=== PATIENT | female | born 1960 | race Caucasian/White ===

== ENCOUNTER 2025-01-18 09:11 | Emergency (ER) | payer OTHER ==
[~2025-01-18] VITALS: Ht 162.6 cm; Wt 90.0 kg
[2025-01-18 09:16] VITALS: TEMP 36.9; O2SAT 98
[2025-01-18 11:26] LABS: BASOPHILS % 0.8 % (0.0-2.0); EOSINOPHILS % 0.4 % (0.0-5.0); HEMATOCRIT. 37.7 % (36.0-48.0); LYMPHOCYTES % 14.7 % (20.0-50.0); MEAN CORPUSCULAR HEMOGLOBIN 27.2 pg (28.0-32.0); MEAN CORPUSCULAR HGB CONC 31.8 g/dL (31.0-37.0); MEAN CORPUSCULAR VOLUME 85.3 fL (81.0-99.0); MEAN PLATELET VOLUME 7.3 fl (7.4-10.4); MONOCYTES % 7.1 % (2.0-8.0); PLATELET 332 x1000/uL (130-400); RED BLOOD CELL COUNT 4.42 mill/uL (4.2-5.4); RED CELL DISTRIBUTION WIDTH 14.4 % (11.6-14.6); WHITE BLOOD COUNT 11.7 x1000/uL (4.5-11.0)
[2025-01-18 11:34] LABS: CHLORIDE 102 mEq/L (98-107); SODIUM 139 mEq/L (136-145)
[2025-01-18 11:35] LABS: CALCIUM 9.3 mg/dL (8.7-10.4); CARBON DIOXIDE 28 mEq/L (21-32)
[2025-01-18 11:40] LABS: CREATININE 1.1 mg/dL (0.6-1.0); GLUCOSE 118 mg/dL (70-105); UREA NITROGEN BLOOD 19 mg/dL (9-23)
[2025-01-18 11:41] LABS: PROTHROMBIN TIME 10.4 sec (9.6-11.0)
[2025-01-18 12:04] LABS: ETHANOL BLOOD < 10 mg/dL (<10)
[2025-01-18] MEDS: HYDROCODONE/ACETAMINOPHEN 5/325MG TABLET PO STA (13:55)
[2025-01-18 15:29] VITALS: BP 133/77; PULSE 74; RESP 16; O2SAT 96
== END 2025-01-18 16:06 | disposition short-term general hospital (02) ==
LOC: ER 09:28 → CANBEDREQ 13:49 → ER 16:06
DX: R20.0 Anesthesia of skin (principal); R53.1 Weakness; J45.909 Unspecified asthma, uncomplicated; I10 Essential (primary) hypertension; Z88.6 Allergy status to analgesic agent; Z88.8 Allergy status to other drugs, medicaments and biological substances; Z79.899 Other long term (current) drug therapy
CPT/HCPCS: 36415; 80048; 80320; 85025; 93005; 99285; G0480